=== PATIENT | male | born 1960 | race Caucasian/White ===

== ENCOUNTER → 2020-01-02 | Outpatient (CLI) | payer OTHER ==
[~2020-01-02] MED LIST: CATHETER FLUSH 10 ML SYR IV PRN; HOLD METFORMIN - RECEIVED CONTRAST 20 ML VIAL IV SCH; IOHEXOL 350 MG/ML 100 ML (OMNIPAQUE 350) VIAL IV ONE; NS 100 ML (IVPB) BAG IV ONE
--- NOTE | 2020-01-02 11:06 | Diagnostic Imaging Report ---
PROCEDURE: CT abdomen and pelvis with and without contrast. TECHNIQUE: Precontrast acquisitions were acquired through the abdomen and pelvis. Multiple contiguous axial images were obtained through the abdomen and pelvis after the administration of intravenous contrast. Auto Exposure Controls were utilized during the CT exam to meet ALARA standards for radiation dose reduction. INDICATION: Renal mass. COMPARISON: There are no prior studies available for comparison. FINDINGS: On the pre-intravenous contrast series there is no evidence for nephrolithiasis. Following the administration of contrast both kidneys did show excretion of the contrast. There is no evidence for obstruction of either collecting system and there is no sign of a solid renal mass. The urinary bladder is only partially filled with urine and contrast and consequently not optimally assessed. There is no obvious bladder abnormality evident. The prostate gland does not appear to be enlarged. There is no pelvic mass or free fluid collection visualized. The appendix was not particularly well imaged but there are no indirect signs of acute appendicitis. There may be a few diverticula of the sigmoid colon but there is no evidence for acute diverticulitis. The liver, spleen, pancreas, adrenals, gallbladder, aorta and inferior vena cava are unremarkable for an acute abnormality. The stomach is partially filled with fluid and consequently difficult to assess. The lung bases are clear. The bone windows show no sign of a fracture or of a destructive lesion. IMPRESSION: 1. There is no evidence for nephrolithiasis and the kidneys do not appear to be obstructed. There is no sign of a solid renal mass either. There is no obvious bladder abnormality identified either. 2. There is no acute abnormality of the abdomen or pelvis. Dictated by: Dictated on workstation # [id number]
== END ==
LOC: RAD 08:44
PROVIDERS: ATTEND Urology
DX: N28.89 Other specified disorders of kidney and ureter (principal); R31.29 Other microscopic hematuria
CPT/HCPCS: 74178